=== PATIENT | male | born 1955 | race Caucasian/White ===

== ENCOUNTER 2020-02-26 00:15 | Inpatient (IN) | payer MEDICARE ==
[~2020-02-26] VITALS: Ht 162.6 cm; Wt 81.6 kg
[2020-02-26 00:42] LABS: BASOPHILS # (AUTO) 0.1 (0.0-0.1); BASOPHILS % 0.9 % (0.0-1.0); EOSINOPHILS # (AUTO) 0.4 (0.0-0.4); HEMATOCRIT 41.3 % (38.2-49.6); HEMOGLOBIN 13.8 g/dL (14.0-18.0); LYMPHOCYTES # (AUTO) 4.7 (1.0-3.2); LYMPHOCYTES % 45.8 % (18.0-39.1); MEAN CORPUSCULAR HGB CONC 33.4 g/dL (31-35); MEAN CORPUSCULAR VOLUME 86.8 fL (81-99); MONOCYTES # (AUTO) 0.5 (0.2-0.8); MONOCYTES % 5.3 % (4.4-11.3); NEUTROPHILS # (AUTO) 4.5 (2.1-6.9); NEUTROPHILS % 43.6 % (38.7-80.0); PLATELET COUNT 222 x10e3/uL (140-360); RED BLOOD COUNT 4.76 x10e6/uL (4.3-5.7); RED CELL DISTRIBUTION WIDTH 13.4 % (11.7-14.4)
--- NOTE | 2020-02-26 00:43 | Emergency Department Note ---
History of Present Illnes History of Present Illness Chief Complaint: Chest Pain History of Present Illness This is a 64 year old male PRESENTS TO THE ER C/O MIDSTERNAL CP AND DYSPNEA ONSET 45 MNINUTES PT AFTER EATING PLANTAIN CHIPS; PT STATES PAIN RESOLVED AFTER TAKING PEPTO BISMOL; PT STATES CP AND DYSPNEA RESOLVED PRIOR TO EMS' ARRIVAL; PT DENIES CP OR DYSPNEA AT THIS TIME; PT STATES HE HAS BEEN EXPERIENCING SAME ISSUES FOR THE PAST SEVERAL MONTHS AND WAS TOLD BY PCP IT COULD BE GI RELATED; PER EMS, PT'S STATED PT BECAME DIAPHPORETIC WHEN SYMPTOMS OCCURED; PT DENIES N/V/D; NAD NOTED AT THIS TIME; . 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 Any updates have been documented here. 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 Other Surgery: CA REMOVAL RT FOOT Social History Smoking Cessation: Current every day smoker Alcohol Use: Occasional Any Illegal Drug Use: No Family History Family history of heart diseas: No Review of Systems Review of Systems Constitutional: Reports no symptoms EENTM: Reports no symptoms Cardiovascular: Reports as per HPI Respiratory: Reports no symptoms Gastrointestinal: Reports no symptoms Genitourinary: Reports no symptoms Musculoskeletal: Reports no symptoms Integumentary: Reports no symptoms Neurological: Reports no symptoms Psychological: Reports no symptoms Endocrine: Reports no symptoms Hematological/Lymphatic: Reports no symptoms Physical Exam Related Data Allergies: Coded Allergies: No Known Allergies (Unverified , 02/26/20) Triage Vital Signs Vital Signs Date Time Temp Pulse Resp B/P (MAP) Pulse Ox O2 Delivery O2 Flow Rate FiO2 02/26/20 00:15 98.8 76 20 146/91 100 Room Air Vital signs reviewed: Yes Physical Exam CONSTITUTIONAL Constitutional: Present well-developed, Present well-nourished HENT HENT: Present normocephalic, Present atraumatic, Present oropharynx clear/moist, Present nose normal HENT L/R: Present left ext ear normal, Present right ext ear normal EYES Eyes: Reports PERRL, Reports conjunctivae normal NECK Neck: Present ROM normal PULMONARY Pulmonary: Present effort normal, Present breath sounds normal CARDIOVASCULAR Cardiovascular: Present regular rhythm, Present heart sounds normal, Present capillary refill normal, Present normal rate GASTROINTESTINAL Abdominal: Present soft, Present nontender, Present bowel sounds normal GENITOURINARY Genitourinary: Present exam deferred SKIN Skin: Present warm, Present dry MUSCULOSKELETAL Musculoskeletal: Present ROM normal NEUROLOGICAL Neurological: Present alert, Present oriented x 3, Present no gross motor or sensory deficits PSYCHOLOGICAL Psychological: Present mood/affect normal, Present judgement normal Results Laboratory Laboratory Laboratory Tests Test 02/26/20 00:58 02/26/20 00:25 Prothrombin Time 12.3 seconds (11.9-14.5) Prothromb Time International Ratio 0.87 Activated Partial Thromboplast Time 30.2 seconds (23.8-35.5) Sodium Level 142 mmol/L (136-145) Potassium Level 4.5 mmol/L (3.5-5.1) Chloride Level 104 mmol/L (98-107) Carbon Dioxide Level 26 mmol/L (22-29) Anion Gap 16.5 mmol/L (8-16) Blood Urea Nitrogen 16 mg/dL (7-26) Creatinine 1.01 mg/dL (0.72-1.25) Estimat Glomerular Filtration Rate > 60 ML/MIN (60-) BUN/Creatinine Ratio 16 (6-25) Glucose Level 118 mg/dL (74-118) Calcium Level 9.4 mg/dL (8.4-10.2) Total Bilirubin 0.5 mg/dL (0.2-1.2) Aspartate Amino Transf (AST/SGOT) 24 IU/L (5-34) Alanine Aminotransferase (ALT/SGPT) 23 IU/L (0-55) Alkaline Phosphatase 70 IU/L (40-150) Creatine Kinase 202 IU/L (30-200) Creatine Kinase MB 2.40 ng/mL (0-5.0) Troponin I 0.011 ng/mL (0-0.300) Total Protein 7.6 g/dL (6.5-8.1) Albumin 4.1 g/dL (3.5-5.0) Globulin 3.5 g/dL (2.3-3.5) Albumin/Globulin Ratio 1.2 (0.8-2.0) Amylase Level 149 U/L (25-125) Lipase 534 U/L (8-78) White Blood Count 10.27 x10e3/uL (4.8-10.8) Red Blood Count 4.76 x10e6/uL (4.3-5.7) Hemoglobin 13.8 g/dL (14.0-18.0) Hematocrit 41.3 % (38.2-49.6) Mean Corpuscular Volume 86.8 fL (81-99) Mean Corpuscular Hemoglobin 29.0 pg (28-32) Mean Corpuscular Hemoglobin Concent 33.4 g/dL (31-35) Red Cell Distribution Width 13.4 % (11.7-14.4) Platelet Count 222 x10e3/uL (140-360) Neutrophils (%) (Auto) 43.6 % (38.7-80.0) Lymphocytes (%) (Auto) 45.8 % (18.0-39.1) Monocytes (%) (Auto) 5.3 % (4.4-11.3) Eosinophils (%) (Auto) 4.0 % (0.0-6.0) Basophils (%) (Auto) 0.9 % (0.0-1.0) Neutrophils # (Auto) 4.5 (2.1-6.9) Lymphocytes # (Auto) 4.7 (1.0-3.2) Monocytes # (Auto) 0.5 (0.2-0.8) Eosinophils # (Auto) 0.4 (0.0-0.4) Basophils # (Auto) 0.1 (0.0-0.1) Absolute Immature Granulocyte (auto 0.04 x10e3/uL (0-0.1) B-Type Natriuretic Peptide < 10.0 pg/mL (0-100) Lab results reviewed: Yes Imaging Imaging results reviewed: Yes Impressions Procedure: [id number] DX/CHEST SINGLE (PORTABLE) Exam Date: Exam Time: REPORT STATUS: Signed EXAMINATION: CHEST SINGLE (PORTABLE) INDICATION: ^CHEST PAIN ^Y COMPARISON: None FINDINGS: AP view TUBES and LINES: None. LUNGS: Lungs are well inflated. There is no evidence of pneumonia or pulmonary edema. PLEURA: No pleural effusion or pneumothorax. HEART AND MEDIASTINUM: The cardiomediastinal silhouette is unremarkable. BONES AND SOFT TISSUES: No acute osseous lesion. Soft tissues are unremarkable. UPPER ABDOMEN: No free air under the diaphragm. IMPRESSION: No acute thoracic abnormality. Signed by: Dr. Sumeet Petty MD on 02/26/2020 12:55 AM Dictated By: SUMEET PETTY MD Transcribed By: DWAINE on 02/26/2054 COPY TO: EDWIN DESAI MD~ Procedures 12 Lead ECG Interpretation ECG Interpretation : ECG: ECG 1 [place]: Interpreted by ED physician Date: Feb 26, 2020 Time: 00:26 Rhythm: sinus rhythm Rate: normal BPM: 77 QRS axis: normal ST segments normal: Yes T waves normal: Yes Other findings: no other findings Clinical Impression: normal ECG Assessment & Plan Medical Decision Making MDM PT WITH INTERMITTENT CHEST PAIN FOR SEVERAL MONTHS OCCURRED AGAIN TONIGHT CBC, CMP, AMYLASE, LIPASE, CARDIAC ENZYMES, EKG, CXR, GALLBLADDER ULTRASOUND ORDERED TO EVAL FOR MYOCARDIAL INFARCTION, GALLSTONES, PANCREATITIS, ELEVATED LFT'S PNEUMONIA, PULMONARY EDEMA, ELECTROLYTE ABNORMALITY i spoke with dr lewis and dr anastacio gamboa. admit pt Assessment & Plan Final Impression: (1) Pancreatitis (2) Chest pain Depart Disposition: ADMITTED Last Vital Signs Date Time Temp Pulse Resp B/P (MAP) Pulse Ox O2 Delivery O2 Flow Rate FiO2 02/26/20 00:15 98.8 76 20 146/91 100 Room Air EDWIN DESAI MD Feb 26, 2020 00:43
--- NOTE | 2020-02-26 00:58 | Diagnostic Imaging Report ---
EXAMINATION: CHEST SINGLE (PORTABLE) INDICATION: ^CHEST PAIN ^Y COMPARISON: None FINDINGS: AP view TUBES and LINES: None. LUNGS: Lungs are well inflated. There is no evidence of pneumonia or pulmonary edema. PLEURA: No pleural effusion or pneumothorax. HEART AND MEDIASTINUM: The cardiomediastinal silhouette is unremarkable. BONES AND SOFT TISSUES: No acute osseous lesion. Soft tissues are unremarkable. UPPER ABDOMEN: No free air under the diaphragm. IMPRESSION: No acute thoracic abnormality. Signed by: Dr. Sumeet Duckworth MD on 02/26/2020 12:55 AM
[2020-02-26 01:20] LABS: INR 0.87; PROTHROMBIN TIME 12.3 seconds (11.9-14.5)
[2020-02-26 01:21] LABS: PARTIAL THROMBOPLASTIN TIME 30.2 seconds (23.8-35.5)
[2020-02-26 01:32] LABS: ALANINE AMINOTRANSFERASE 23 IU/L (0-55); ALBUMIN 4.1 g/dL (3.5-5.0); ALBUMIN/GLOBULIN RATIO 1.2 (0.8-2.0); ALKALINE PHOSPHATASE 70 IU/L (40-150); ANION GAP 16.5 mmol/L (8-16); BLOOD UREA NITROGEN 16 mg/dL (7-26); BUN/CREATININE RATIO 16 (6-25); CALCIUM 9.4 mg/dL (8.4-10.2); CARBON DIOXIDE 26 mmol/L (22-29); CHLORIDE 104 mmol/L (98-107); CREATINE KINASE 202 IU/L (30-200); CREATININE, SERUM 1.01 mg/dL (0.72-1.25); EST GLOMERULAR FILTRATION RATE > 60 ML/MIN (60-); GLUCOSE 118 mg/dL (74-118); POTASSIUM 4.5 mmol/L (3.5-5.1); SODIUM 142 mmol/L (136-145)
--- NOTE | 2020-02-26 02:00 | Diagnostic Imaging Report ---
EXAM: Right Upper Quadrant Ultrasound INDICATION: ^UPPER ABD PAIN ^Y COMPARISON: None. TECHNIQUE: Transverse and longitudinal images of the right upper abdomen were obtained. FINDINGS: Liver: Size: 16.1 cm in the right midclavicular line, normal Appearance: Normal echogenicity, smooth contour Mass: No focal masses Gallbladder: Contracted. Stones/Sludge: None Wall: 0.3 cm Appearance: No pericholecystic fluid or hydrops. Sonographic Hernadez's Sign: Negative Bile Ducts: Intrahepatic Ducts: No dilatation Extrahepatic Ducts: Common bile duct measures 0.3 cm, no dilatation Pancreas: Not well-visualized. Right Kidney: Size: 10.8 cm Echogenicity: Normal Parenchymal thickness: Normal Collecting system: No hydronephrosis Stones: None Cyst/Mass: None Vessels: Aorta: Visualized portions are normal Inferior Vena Cava: Visualized portions are normal Main Portal Vein: 0.8 cm, normal size with hepatopetal flow. Free Fluid: No ascites or pleural effusion IMPRESSION: Unremarkable right upper quadrant ultrasound. Signed by: Dr. Sumeet Duckworth MD on 02/26/2020 1:57 AM
[2020-02-26 02:09] LABS: AMYLASE 149 U/L (25-125); LIPASE 534 U/L (8-78)
[2020-02-26] MEDS ORDERED: SODIUM CHLORIDE 0.9% 1000ML 1,000 ML IV ONE (02:30)
[2020-02-26] MEDS ORDERED: SODIUM CHLORIDE 0.9% 1000ML 1,000 ML ONE (02:36)
--- OUTSIDE RECORDS SUMMARY | 2020-02-26 02:41 | XMS REPORT | Continuity of Care Document ---
Author Author [facility] Organization [facility] Address [address] [place] [address] [place] [id number] Phone Unavailable Care Team Providers Care Marketing Researcher Name Role Phone Maria L DESAI Attphys Unavailable Problems This patient has no known problems. Allergies, Adverse Reactions, Alerts This patient has no known allergies or adverse reactions. Medications This patient has no known medications. Procedures This patient has no known procedures. Results Test Description Test Time Test Comments Results Result Comments Source [facility] 2020-02-26 01:49:00 [facility] 1955 Sex: M [facility] [address] [address] Patient Name: CY NIETO MR #: [id number] : 1955 Age/Sex: 64/M Req #: [id number] [facility] Physician: Ordered by: EDWIN DESAI MD Report #: [id number] Location: ER Room/Bed: Procedure: [id number] US/US GALLBLADDER Exam Date: 02/26/20 Exam Time: 0112 REPORT STATUS: Signed EXAM: Right Upper Quadrant Ultrasound INDICATION: UPPER ABD PAIN Y COMPARISON: None. TECHNIQUE: Transverse and longitudinal images of the right upper abdomen were obtained. FINDINGS: Liver: Size: 16.1 cm in the right midclavicular line, normal Appearance: Normal echogenicity, smooth contour Mass: No focal masses Gallbladder: Contracted. Stones/Sludge: None Wall: 0.3 cm Appearance: No pericholecystic fluid or hydrops. Sonographic Hernadez's Sign: Negative Bile Ducts: Intrahepatic Ducts: No dilatation Extrahepatic Ducts: Common bile duct measures 0.3 cm, no dilatation Pancreas: Not well-visualized. Right Kidney: Size: 10.8 cm Echogenicity: Normal Parenchymal thickness: Normal Collecting system: No hydronephrosis Stones: None Cyst/Mass: None Vessels: Aorta: Visualized portions are normal Inferior Vena Cava: Visualized portions are normal Main Portal Vein: 0.8 cm, normal size with hepatopetal flow. Free Fluid: No ascites or pleural effusion IMPRESSION: Unremarkable right upper quadrant ultrasound. Signed by: Dr. Sumeet Petty MD on 02/26/2020 1:57 AM Dictated By: SUMEET PETTY MD 6 Transcribed By: DWAINE on 02/26/20156 COPY TO: EDWIN DESAI MD CHEST SINGLE (PORTABLE) 2020-02-26 00:53:00 [facility] : 1955 Sex: M [facility] [address] [address] Patient Name: CY NIETO MR #: [id number] : 1955 Age/Sex: 64/M Req #: [id number] Adm Physician: Ordered by: EDWIN DESAI MD Report #: [id number] Location: ER Room/Bed: Procedure: [id number] DX/CHEST SINGLE (PORTABLE) Exam Date: Exam Time: REPORT STATUS: Signed EXAMINATION: CHEST SINGLE (PORTABLE) INDICATION: CHEST PAIN Y COMPARISON: None FINDINGS: AP view TUBES and LINES: None. LUNGS: Lungs are well inflated. There is no evidence of pneumonia or pulmonary edema. PLEURA: No pleural effusion or pneumothorax. HEART AND MEDIASTINUM: The cardiomediastinal silhouette is unremarkable. BONES AND SOFT TISSUES: No acute osseous lesion. Soft tissues are unremarkable. UPPER ABDOMEN: No free air under the diaphragm. IMPRESSION: No acute thoracic abnormality. Signed by: Dr. Sumeet Petty MD on 02/26/2020 12:55 AM Dictated By: SUMEET PETTY MD Transcribed By: DWAINE on 02/26/2054 COPY TO: EDWIN DESAI MD
[2020-02-26] MEDS ORDERED: MORPHINE SULFATE INJ 4 MG/ML INJ 1ML IV PRN (02:45)
[2020-02-26] MEDS ORDERED: ONDANSETRON HCL INJ 2MG/ML 2ML 2 MG/ML VIAL IV PRN (02:45)
--- NOTE | 2020-02-26 03:36 | NUR ---
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
--- NOTE | 2020-02-26 06:00 | NUR ---
Patient woke up went to restroom ambulatory with steady gait, no c/o pain at this time. VSS
[2020-02-26] MEDS: SODIUM CHLORIDE 0.9% 1000ML 1,000 ML IV SCH ×5 (06:45→18:45)
--- NOTE | 2020-02-26 07:17 | NUR ---
RECEIVED REPORT FROM OFF GOING NURSE. PATIENT IN ROOM IN BED. AWAKE AND ALERT. NO S/S OF ACUTE DISTRESS. RESP EVEN AND NON LABORED. PENDING ADMISSION. WILL CONTINUE TO MONITOR.
--- NOTE | 2020-02-26 07:17 | NUR ---
Handoff report given to Naman NÚÑEZ.
[2020-02-26 09:32] LABS: ALANINE AMINOTRANSFERASE 18 IU/L (0-55); ALBUMIN 3.7 g/dL (3.5-5.0); ALBUMIN/GLOBULIN RATIO 1.2 (0.8-2.0); ALKALINE PHOSPHATASE 61 IU/L (40-150); AMYLASE 76 U/L (25-125); ANION GAP 12.2 mmol/L (8-16); BLOOD UREA NITROGEN 11 mg/dL (7-26); BUN/CREATININE RATIO 14 (6-25); CALCIUM 8.8 mg/dL (8.4-10.2); CARBON DIOXIDE 23 mmol/L (22-29); CHLORIDE 110 mmol/L (98-107); EST GLOMERULAR FILTRATION RATE > 60 ML/MIN (60-); GLUCOSE 106 mg/dL (74-118); LIPASE 87 U/L (8-78); POTASSIUM 4.2 mmol/L (3.5-5.1); SODIUM 141 mmol/L (136-145)
[2020-02-26] MEDS ORDERED: ACETAMINOPHEN 325 MG TAB PO PRN (10:15)
[2020-02-26] MEDS ORDERED: HYDRALAZINE HCL 20 MG/ML VIAL IV PRN (10:15)
[2020-02-26 10:29] LABS: CHOL/HDL RATIO 6.7 (3.9-4.7)
--- NOTE | 2020-02-26 12:32 | Diagnostic Imaging Report ---
TECHNIQUE: MRI of the abdomen and MRCP WITHOUT intravenous contrast. 3-D volume reconstructions were obtained to evaluate the biliary ductal system. INDICATION: 64-year-old man with pancreatitis. COMPARISON: Abdomen ultrasound from earlier same date. FINDINGS: ABSENCE OF INTRAVENOUS CONTRAST DECREASES SENSITIVITY FOR DETECTION OF FOCAL LESIONS AND VASCULAR PATHOLOGY. LOWER THORAX: Mild atelectasis in both lung bases. LIVER: No cirrhosis or hepatic steatosis. No focal hepatic lesions. BILIARY: Gallbladder is unremarkable. Intrahepatic and extra hepatic bile ducts are normal in caliber and contour without filling defect. SPLEEN: No splenomegaly. Subcentimeter T2 hyperintensity in the superior aspect of the spleen, likely a benign entity such as a cyst. PANCREAS: No focal masses or ductal dilatation. ADRENALS: No adrenal nodules. KIDNEYS/URETERS: No hydronephrosis or solid mass lesions. Parapelvic right renal cyst measures 2.1 x 1.5 cm. 1 cm cortical right renal cyst. PERITONEUM/RETROPERITONEUM: No free fluid. LYMPH NODES: No lymphadenopathy. VESSELS: Unremarkable. GI TRACT: No distention or wall thickening. BONES AND SOFT TISSUES: Mild degenerative changes of the visualized spine. Soft tissues are unremarkable. IMPRESSION: No choledocholithiasis or biliary ductal dilatation. Signed by: Rosahn Holden MD on 02/26/2020 12:28 PM
[2020-02-26 13:01] VITALS: BP 129/87
--- NOTE | 2020-02-26 13:01 | NUR ---
RCD PT FROM ER BY BED PT IS ALERT AND ORIENTED VITALS CHECKED PT RESTING ON BED ADMISSION ASSESSMENT DONE IV PATENT BY SALINE FLUSH AND STARTED NS 250 ML /HR FAMILY AT BED SIDE INSTRUCTED THE PT AND FAMILY REGARDING HOSPITAL POLICY AND ROUTINE BED LOW AND LOCKED CALL LIGHT IN REACH
[2020-02-26 14:44] VITALS: BP 129/80
[2020-02-26 16:05] LABS: CREATINE KINASE MB 2.9 ng/mL (0-5.0)
[2020-02-26 16:14] VITALS: BP 123/79
--- NOTE | 2020-02-26 18:43 | NUR ---
PT RESTING ON BED BED SIDE REPORT GIVEN TO ONCOMING NURSE
[2020-02-26 20:00] VITALS: BP 130/80
--- NOTE | 2020-02-26 20:11 | NUR ---
RECEIVED PT IN BED AOX3 DENIES PAIN RESPIRATIONS ARE EVEN AND UNLABORED FAMILY AT THE BEDSIDE ,CALL LIGHT WITH IN REACH.
[2020-02-26 20:25] VITALS: BP 123/79
--- NOTE | 2020-02-26 23:03 | History and Physical ---
PCP: Dr. Chaparro Grey at [facility]. CHIEF COMPLAINT: Epigastric/substernal pain. HISTORY OF PRESENT ILLNESS: This is a 64-year-old male with no past medical history, presented to the ER with complaints of epigastric pain that started last night after eating some plantain chips. He reports the pain has been on and off more frequently for the past 6 weeks. He reports pain was started, he had diaphoresis and mild shortness of breath due to severe pain. He reports took Pepto-Bismol, which relieved his pain, but the pain restarted again 10 minutes later. Upon my assessment, he denies any nausea, vomiting, chest pain, shortness of breath, cough, recent ill contacts, any diarrhea or abdominal pain. He is admitted for further evaluation. PAST MEDICAL HISTORY: None. PAST SURGICAL HISTORY: He reports had some skin tags removed. FAMILY MEDICAL HISTORY: He reports father has diabetes and mother has heart disease. SOCIAL HISTORY: He smokes half a pack a day, alcohol occasionally, and no illicit drug use. He is and lives with his . ALLERGIES: NO KNOWN DRUG ALLERGIES. REVIEW OF SYSTEMS: Ten systems reviewed and negative except as reported in HPI. PHYSICAL EXAMINATION: VITAL SIGNS: Temperature 98.1, pulse is 85, respirations 16, blood pressure 108/74, pulse ox is 98% on room air. GENERAL: No acute distress. HEENT: Normocephalic and atraumatic. NECK: Supple. LUNGS: Clear to auscultation. CARDIOVASCULAR: Regular rate and rhythm. GI: Soft and nontender. NEUROLOGIC: Alert, awake, and oriented x3. MUSCULOSKELETAL: Moves all extremities. No edema. SKIN: Dry and intact. PSYCH: Calm. LABORATORY DATA: WBC 10.27, hemoglobin 13.8, hematocrit 41.3, and platelets 222. Sodium 141, potassium 4.2, CO2 of 23, BUN 11, creatinine 0.80, estimated GFR is greater than 60. Troponin 0.011, then 0.147, and then 0.181. Triglyceride 175, cholesterol 213, LDL 146, HDL 32. Amylase 149, lipase . PT 12.3, INR 0.87, and APTT 30.2. COVID PCR is pending. Gallbladder ultrasound is unremarkable. Right upper quadrant ultrasound, the pancreas is not well visualized. Chest x-ray, no acute thoracic abnormalities. IMPRESSION AND PLAN: 1. Epigastric pain due to acute pancreatitis. He is kept n.p.o. with IV fluid hydration. Lipase was . Continue pain management as needed. GI has been consulted. 2. Hyperlipidemia. We will start on statin once p.o. started. 3. Smoker. Discussed cessation. 4. Deep vein thrombosis prophylaxis. Lovenox subcu. PLAN: We will continue IV fluid hydration and pain management as needed. We will repeat labs tomorrow. Further recommendations per GI. MRCP pending. Dictated by PATRICE Douglas Hillary Astudillo MD MY/MODL /[id number]
[2020-02-27] VITALS: BP 105/72
[2020-02-27] MEDS: SODIUM CHLORIDE 0.9% 1000ML 1,000 ML IV SCH ×2 (03:24→11:19)
[2020-02-27 04:00] VITALS: BP 97/67
[2020-02-27 05:07] LABS: BASOPHILS # (AUTO) 0.1 (0.0-0.1); BASOPHILS % 0.9 % (0.0-1.0); EOSINOPHILS # (AUTO) 0.4 (0.0-0.4); EOSINOPHILS % 3.7 % (0.0-6.0); HEMATOCRIT 38.7 % (38.2-49.6); HEMOGLOBIN 12.6 g/dL (14.0-18.0); LYMPHOCYTES # (AUTO) 4.5 (1.0-3.2); LYMPHOCYTES % 46.2 % (18.0-39.1); MEAN CORPUSCULAR HEMOGLOBIN 29.4 pg (28-32); MEAN CORPUSCULAR HGB CONC 32.6 g/dL (31-35); MEAN CORPUSCULAR VOLUME 90.2 fL (81-99); MONOCYTES # (AUTO) 0.5 (0.2-0.8); MONOCYTES % 5.4 % (4.4-11.3); NEUTROPHILS # (AUTO) 4.2 (2.1-6.9); NEUTROPHILS % 43.6 % (38.7-80.0); PLATELET COUNT 219 x10e3/uL (140-360); RED BLOOD COUNT 4.29 x10e6/uL (4.3-5.7); RED CELL DISTRIBUTION WIDTH 13.2 % (11.7-14.4)
[2020-02-27 05:25] LABS: ANION GAP 10.2 mmol/L (8-16); BLOOD UREA NITROGEN 10 mg/dL (7-26); BUN/CREATININE RATIO 11 (6-25); CALCIUM 8.1 mg/dL (8.4-10.2); CARBON DIOXIDE 25 mmol/L (22-29); CHLORIDE 110 mmol/L (98-107); CREATININE, SERUM 0.92 mg/dL (0.72-1.25); EST GLOMERULAR FILTRATION RATE > 60 ML/MIN (60-); GLUCOSE 94 mg/dL (74-118); LIPASE 143 U/L (8-78); POTASSIUM 4.2 mmol/L (3.5-5.1); SODIUM 141 mmol/L (136-145)
--- NOTE | 2020-02-27 05:49 | NUR ---
PT RESTED DURING THE NIGHT ,DR MCKEON HAS SEEN THE PT ,NEW LABS ORDERED ,,CONTINUE TO MONITOR
--- NOTE | 2020-02-27 07:18 | NUR ---
BEDSIDE REPORT GIVEN TO THE ON COMING NURSE .PT IS STABLE
[2020-02-27 07:38] VITALS: BP 94/66
[2020-02-27 08:35] VITALS: BP 94/66
[2020-02-27] MEDS ORDERED: FAMOTIDINE 20 MG/2 ML VIAL IV SCH (09:00)
--- NOTE | 2020-02-27 09:55 | NUR ---
SPOKE WITH KENNA ,FOR PT POSSIBLE D/C
--- NOTE | 2020-02-27 10:09 | NUR ---
KENNA HERRERA. ASST. WITH DR. Christian MCKEON OFFICE.
--- NOTE | 2020-02-27 10:09 | NUR ---
CALLED DR. ANGUIANO OFFICE FOR PT D/C
[2020-02-27] MEDS ORDERED: LIPITOR20 MG PO (10:41)
[2020-02-27 12:09] VITALS: BP 97/72
--- NOTE | 2020-02-27 14:21 | NUR ---
PT DISCHARGED HOME RESP EVEN AND UNLABORED AT THIS TIME, PT WAS EDUCATED ON, HIS PT PRESCRIPTION, AND WAS ASKED TO FOLLOW UP WITH GI DOCTOR AND PCP. IV SITE REMOVED, NO SWELLING NO REDNESS TO SITE.
[2020-02-27] MEDS ORDERED: ENOXAPARIN SOD INJ 40 MG/0.4 ML SYR SC SCH (17:00)
--- NOTE | 2020-02-27 21:38 | Discharge Summary ---
PCP: Dr. Chaparro Grey at [facility]. FINAL DISCHARGE DIAGNOSES: 1. Epigastric pain due to acute pancreatitis. 2. Hyperlipidemia. 3. Smoker. CONSULTANTS: Dr. Espino with GI. PROCEDURES: None. HISTORY: Per HPI. HOSPITAL COURSE: This is a 64-year-old male with no past medical history, presented to the ER with complaints of epigastric pain, which improved with Pepto-Bismol. He then had an episode after eating some plantain chips. GI was consulted, lipase was elevated at 500. He was started on IV fluids and gallbladder ultrasound was done, which was unremarkable. Chest x-ray was also unremarkable. MRCP showed no cholelithiasis or biliary dilation. He was started on Pepcid and started on clear liquids. He tolerated diet. No further abdominal pain. He will be discharged home today if tolerates a regular diet to follow up with PCP and GI for outpatient EGD and colonoscopy. He has no abdominal pain, nausea, vomiting, fever, or chills. PHYSICAL EXAMINATION: VITAL SIGNS: Temperature 98.1, pulse is 56, respirations 19, blood pressure 97/72, pulse ox is 100% on room air. GENERAL: No acute distress. HEENT: Normocephalic and atraumatic. NECK: Supple. LUNGS: Clear to auscultation. CARDIOVASCULAR: Regular rate and rhythm. GI: Soft and nontender. NEUROLOGIC: Alert, awake, and oriented x3. MUSCULOSKELETAL: Moves all extremities. No edema. SKIN: Dry and intact. PSYCH: Calm. CONDITION AT DISCHARGE: Stable and improved. DISCHARGE MEDICATIONS: Please see medication reconciliation list. Started on statin and advised to take Pepcid. FOLLOWUP: Follow up with PCP and GI in 1 to 2 weeks for further workup. TIME SPENT: Total discharge time is 32 minutes. Dictated by PATRICE Douglas Hillary Astudillo MD MY/MODL /[id number] cc: Chaparro Grey MD [facility]
== END 2020-02-27 14:16 | disposition home or self-care (01) | DRG 440 ==
LOC: ER 00:20 → ERHOLD 02:37 → MED/SURG2 13:01
PROVIDERS: ADMIT Internal Medicine; ATTEND Internal Medicine
DX: K85.90 Acute pancreatitis without necrosis or infection, unspecified (principal); E78.5 Hyperlipidemia, unspecified; F17.210 Nicotine dependence, cigarettes, uncomplicated; Z11.59 Encounter for screening for other viral diseases
CPT/HCPCS: 36415; 71045; 74181; 76705; 80048; 80053; 80061; 82150; 82550; 82553; 83690; 83880; 83970; 84484; 85025; 85610; 85730; 86039; 86301; 93005; 99284; J7030

== ENCOUNTER 2020-05-31 23:17 | Emergency (ER) | payer MEDICARE ==
[~2020-05-31] VITALS: Ht 175.3 cm; Wt 81.6 kg
[~2020-05-31 23:17] MED LIST: LIPITOR20 MG PO
[2020-05-31] MEDS ORDERED: ASPIRIN CHEW81 MG PO (23:41)
[2020-05-31] MEDS ORDERED: AUGMENTIN 875-1 EACH PO (23:41)
[2020-05-31] MEDS: ONDANSETRON HCL INJ 2MG/ML 2ML 2 MG/ML VIAL IV STA (23:55)
[2020-05-31] MEDS: MORPHINE SULFATE INJ 4 MG/ML INJ 1ML IV PRN (23:55)
[2020-05-31] MEDS: LACTATED RINGER'S 1,000 ML INJ ONE (23:55)
[2020-05-31 23:57] LABS: BASOPHILS # (AUTO) 0.1 (0.0-0.1); BASOPHILS % 0.3 % (0.0-1.0); EOSINOPHILS % 0.2 % (0.0-6.0); HEMATOCRIT 40.5 % (38.2-49.6); HEMOGLOBIN 13.3 g/dL (14.0-18.0); LYMPHOCYTES # (AUTO) 3.1 (1.0-3.2); LYMPHOCYTES % 17.4 % (18.0-39.1); MEAN CORPUSCULAR HEMOGLOBIN 28.2 pg (28-32); MEAN CORPUSCULAR HGB CONC 32.8 g/dL (31-35); MONOCYTES # (AUTO) 0.9 (0.2-0.8); MONOCYTES % 5.1 % (4.4-11.3); NEUTROPHILS # (AUTO) 13.6 (2.1-6.9); NEUTROPHILS % 76.4 % (38.7-80.0); PLATELET COUNT 225 x10e3/uL (140-360); RED BLOOD COUNT 4.71 x10e6/uL (4.3-5.7); RED CELL DISTRIBUTION WIDTH 13.7 % (11.7-14.4)
[2020-06-01 00:18] LABS: ALANINE AMINOTRANSFERASE 20 IU/L (0-55); ALKALINE PHOSPHATASE 65 IU/L (40-150); ANION GAP 17.6 mmol/L (8-16); BLOOD UREA NITROGEN 17 mg/dL (7-26); BUN/CREATININE RATIO 15 (6-25); CALCIUM 9.5 mg/dL (8.4-10.2); CARBON DIOXIDE 23 mmol/L (22-29); CHLORIDE 104 mmol/L (98-107); CREATININE, SERUM 1.12 mg/dL (0.72-1.25); EST GLOMERULAR FILTRATION RATE > 60 ML/MIN (60-); GLUCOSE 125 mg/dL (74-118); POTASSIUM 3.6 mmol/L (3.5-5.1); SODIUM 141 mmol/L (136-145)
[2020-06-01] MEDS ORDERED: ONDANSETRON ODT4 MG PO (01:58)
[2020-06-01] MEDS ORDERED: IOPAMIDOL 370 MG/ML 200 ML INFUS..BTL INJ ONE (05:02)
[2020-06-01] MEDS ORDERED: SODIUM CHLORIDE 0.9% 50ML 50 ML ONE (05:02)
== END 2020-06-01 02:32 | disposition home or self-care (01) ==
LOC: ER 23:25
DX: G89.18 Other acute postprocedural pain (principal); Z90.89 Acquired absence of other organs
CPT/HCPCS: 36415; 74177; 80053; 83690; 85025; 99284; J2270; J2405; J7121; Q9967